=== PATIENT | male | born 1945 | race Caucasian/White ===

== ENCOUNTER → 2023-06-23 | Day surgery (SDC) | payer MEDICARE ==
[2023-06-16 11:59] LABS: BASOPHILS # (AUTO) 0.1 X10'3 (0-0.2); EOSINOPHILS # (AUTO) 0.3 X10'3 (0-0.9); EOSINOPHILS % (AUTO) 4.5 % (0-6); LYMPHOCYTES % (AUTO) 32.1 % (21-51); MEAN CORPUSCULAR HEMOGLOBIN 27.4 PG (27.0-31.0); MEAN CORPUSCULAR HGB CONC 32.8 g/dL (33.0-36.5); MEAN CORPUSCULAR VOLUME 83.5 FL (78-98); MEAN PLATELET VOLUME 7.8 FL (7.4-10.4); MONOCYTES # (AUTO) 0.4 X10'3 (0-0.9); MONOCYTES % (AUTO) 6.5 % (2-12); NEUTROPHILS # (AUTO) 3.5 X10'3 (1.8-7.7); NEUTROPHILS % (AUTO) 55.9 % (42-75); PRE OP HEMATOCRIT 43.4 % (42.0-52.0); PRE OP HEMOGLOBIN 14.2 g/dL (14.0-17.9); PRE OP PLATELET COUNT 188 X10'3 (140-440); PRE OP WHITE BLOOD COUNT 6.2 10'3 (4.8-10.8); RED CELL DISTRIBUTION WIDTH 13.9 % (11.5-14.5)
[2023-06-16 12:13] LABS: ALBUMIN 3.3 G/DL (3.4-5.0); ALBUMIN/GLOBULIN RATIO 0.9 (1.1-1.5); ALKALINE PHOSPHATASE 75 IU/L (46-116); BLOOD UREA NITROGEN 16 MG/DL (7-18); BUN/CREATININE RATIO 12.4 (10.0-20.0); CALCIUM 8.5 MG/DL (8.5-10.1); CHLORIDE 103 MMOL/L (99-107); CREATININE 1.29 MG/DL (0.60-1.10); PRE OP ALT 21 U/L (30-65); PRE OP ANION GAP 9 (8-16); PRE OP AST 14 U/L (10-37); PRE OP BILIRUB, TOTAL 0.6 MG/DL (0.0-1.0); PRE OP GLUCOSE 101 MG/DL (70-104); PRE OP POTASSIUM 3.7 MMOL/L (3.4-5.1); PRE OP SODIUM 137 MMOL/L (135-145); TOTAL CARBON DIOXIDE 24.9 MMOL/L (24-32); TOTAL PROTEIN 6.9 G/DL (6.4-8.2); eGFR 54 ML/MIN
[2023-06-23] VITALS (9 sets, daily range): BP systolic 123–139; BP diastolic 60–97; PULSE 77–97; RESP 9–17; TEMP 97.8; O2SAT 95–99
[~2023-06-23] VITALS: Ht 177.8 cm; Wt 58.2 kg
[~2023-06-23] MED LIST: 0.9 % SODIUM CHLORIDE 10 ML VIAL ONE; AMLO2.5T2 PO; ASPI-1265 PO; LIDOcaine 2% (20mg/ml) 5ml vial ONE; PANT40TA54 PO; acetaminophen 1,000mg/100ml IV 100 ML IV ONE; dexamethasone sod phosphate 4mg/ml inj. ONE; ePHEDrine 50MG/ML INJ. ONE; famotidine 20mg tablet PO ONE; fentaNYL/PF 50MCG/1 ML 2ML syringe ONE; glycopyrrolate 0.2mg/ml inj ONE; hydrALAZINE 20mg/ml inj. IV PRN; labetalol 20mg/4ml (5mg/ml) syringe IV PRN; meperidine/PF 25mg/ml syringe IV PRN; midazolam 1 mg/ML 2ml injection ONE; morphine 2 MG/ML inj. syringe IV PRN; morphine 4 MG/ML inj SYRINge IV PRN; neostigmine methylsulfate 1 MG/ML 10ml vial ONE; ondansetron/PF 4mg/2ml inj IV PRN; ondansetron/PF 4mg/2ml inj ONE; proCHLORperazine 10 MG/2 ml inj IV PRN; propofol inj 20 ML IV ONE; ringers solution, lacted 1,000 ML IV SCH; rocuronium 10mg/ml inj IV ONE; sevoflurane 250ml liquid IH ONE
== END | disposition home or self-care (01) ==
LOC: PAS 10:11
PROVIDERS: ATTEND Internal Medicine Critical Care Medicine
DX: R91.8 Other nonspecific abnormal finding of lung field (principal); D49.1 Neoplasm of unspecified behavior of respiratory system; I10 Essential (primary) hypertension; Z87.891 Personal history of nicotine dependence; Z85.528 Personal history of other malignant neoplasm of kidney; Z79.899 Other long term (current) drug therapy; Z96.651 Presence of right artificial knee joint; Z96.642 Presence of left artificial hip joint; Z90.5 Acquired absence of kidney; Z98.890 Other specified postprocedural states
CPT/HCPCS: 31624; 31628; 31629; 31652; 36415; 71045; 71250; 80053; 82948; 85025; 87015; 87070; 87116; 87206; 93005; 94760; J1100; J2250; J2405; J2704; J2710; J3010; J3490; J7120; Z7506; Z7508; Z7512; 31625; 31626; 31627; 31653; 31654; A4618